=== PATIENT | male | born 1975 | race Caucasian/White ===

== ENCOUNTER 2016-09-20 18:42 | Emergency (ER) | payer OTHER ==
[~2016-09-20] VITALS: Ht 177.8 cm; Wt 76.0 kg
[~2016-09-20 18:42] MED LIST: CLON1TAB3 PO; MIRT15TA2 PO
[2016-09-20 18:52] VITALS: TEMP 37; Ht 177.8 cm; Wt 76.0 kg
[2016-09-20] MEDS ORDERED: XYLOCAINE 1%/SOD BICARB 20 ML VIAL INFIL ONE (20:00)
[2016-09-20 20:43] VITALS: BP 152/90; PULSE 75; O2SAT 96
--- NOTE | 2016-09-21 02:59 | EMERGENCY ROOM VISIT NOTE ---
History Report prepared by Roseline: Layla Arciniega Under the Supervision of: Dr. Alex Ac M.D. First contact with patient: 19:39 Chief Complaint: RECTAL BLEEDING Stated Complaint: HEMEROID BLEEDING Nursing Triage Summary: Pt reports hemorrhoids are bleeding since this morning History of Present Illness The patient is a 41 year old male who presents to the Emergency Room with complaints of worsening rectal bleeding with onset four days ago. The patient notes that he has hemorrhoids. He rates his discomfort as a 3/10. The patient notes that the hemorrhoids swelled over night. He has tried to clean the area. He has used an over the counter cream and has tried eating dates. Today, the patient's hemorrhoids started bleeding "uncontrollably." He relates that the bleeding was not with a bowel movement. The bleeding started as the patient was walking. He then felt nauseous. The patient notes that the area feels extremely sore. In the past, the patient has had a similar episode, but he notes that this had resolved much earlier. Pt denies LOC, headache, fevers, chills, diaphoresis, visual changes, neck pain, chest pain, breathing difficulties, vomiting, abdominal pain, back pain, melena, hematochezia, urinary symptoms, numbness, weakness, lymphadenopathy, rash, or other complaints. Source of History: patient Onset: 4 days ago Position: other (rectum ) Quality: other (rectal bleeding) Timing: worsening Associated Symptoms: + nausea Note: The patient notes that the area is very sore. Review of Systems See HPI for pertinent positives and negatives. A total of ten systems were reviewed and were otherwise negative. Past Medical & Surgical Medical Problems: (1) Kidney stones (2) Seizure disorder Family History Hemorrhoids Social History Smoking Status: Current Every Day Smoker Alcohol Use: occasionally Drug Use: none Occupation Status: employed Current/Historical Medications Scheduled Clonazepam (Klonopin), 1 MG PO HS Mirtazapine Soltab (Remeron Soltab), 15 MG PO HS Allergies Coded Allergies: No Known Allergies (Verified , 09/20/16) Physical Exam Vital Signs Date Time Temp Pulse Resp B/P Pulse Ox O2 Delivery O2 Flow Rate FiO2 09/20/16 20:43 75 16 152/90 96 Room Air 09/20/16 18:52 37.0 74 18 128/81 96 Room Air Physical Exam GENERAL: Awake, alert, well-appearing, in no distress HENT: Normocephalic, atraumatic. Oropharynx unremarkable. EYES: Normal conjunctiva. Sclera non-icteric. NECK: Supple. No nuchal rigidity. FROM. No JVD. RESPIRATORY: Clear to auscultation. CARDIAC: Regular rate, normal rhythm. Extremities warm and well perfused. Pulses equal. ABDOMEN: Soft, non-distended. No tenderness to palpation. No rebound or guarding. No masses. RECTAL: Very large left sided thrombosed hemorrhoid with some minimal venous bleeding present, tender without signs of infection. MUSCULOSKELETAL: Chest examination reveals no tenderness. The back is symmetrical on inspection without obvious abnormality. There is no CVA tenderness to palpation. No joint edema. LOWER EXTREMITIES: Calves are equal size bilaterally and non-tender. No edema. No discoloration. NEURO: Normal sensorium. No sensory or motor deficits noted. SKIN: No rash or jaundice noted. Medical Decision & Procedures Procedure Incision & Drainage Indication: Thrombosed external hemorrhoid Location: rectum Verbal consent was obtained after the risks and benefits were explained, including but not limited to bleeding, scarring, infection, pain, and bone/joint /nerve damage. At this time, the risks of the procedure are less than the risks of NOT performing the procedure. A time out was taken and the correct patient and site identified. The skin was prepped with betadine and a sterile field set. The wound was anesthetized with 3 ml of 1% lidocaine without epinephrine. The hemorrhoid cavity was entered with a number 11 blade and copious clot and blood was expressed. Copious irrigation was performed using normal saline. The wound was explored for foreign bodies and none found. Debridement was not performed. Detailed wound care instructions and signs and symptoms of infection reviewed with the patient. No complications and the patient tolerated the procedure well. ED Course 1942: The patient was evaluated in room D1. A complete history and physical exam was performed. 2033: I reevaluated the patient. Discussed results and discharge instructions: He verbalized understanding and agreement. The patient is ready for discharge. Medical Decision The patient presented to the emergent department complaining of rectal pain and bleeding. Differential includes thrombosed hemorrhoid, fissure, perianal abscess, perirectal abscess, as well as others. Physical examination revealed a clear-cut thrombosed external hemorrhoid. I discussed incision and drainage with the patient. He was in agreement. The patient had an incision and drainage performed with removal of a significant amount of clotted blood. He felt better with this. Bleeding was controlled. Home care was discussed in detail. He will follow-up in the office. If he worsens in any way he will be back to emergency department for reevaluation. Impression Primary Impression: External thrombosed hemorrhoids Scribe Attestation The scribe's documentation has been prepared under my direction and personally reviewed by me in its entirety. I confirm that the note above accurately reflects all work, treatment, procedures, and medical decision making performed by me. Departure Information Dispostion Home / Self-Care Referrals Yossi Jo M.D. (PCP) Forms HOME CARE DOCUMENTATION FORM, IMPORTANT VISIT INFORMATION, WORK / SCHOOL INSTRUCTIONS Patient Instructions My [facility] Additional Instructions Diagnosis: 1. Thrombosed external hemorrhoid Sitz bath or warm shower 2-3 times a day and after every bowel movement until healed. Use the Gauze as directed. Ibuprofen(Motrin, Advil) may be used for fever or pain. Use 600mg every six hours as needed. Take with food. Avoid using more than 2400mg in a 24 hour period. Do not use 2400mg per day for more than three consecutive days without physician direction. Prolonged inappropriate use can lead to stomach upset or ulcers. (AND/OR) Acetaminophen(Tylenol) may be used for fever or pain. Use 1000mg every six hours as needed. Avoid using more than 4000mg in a 24 hour period. Rest and drink plenty of fluids as tolerated. Slow sips of water or sports drinks are recommended instead of large amounts all at once. Continue current medications. Return to the ER immediately for worsening or persistent rectal bleeding, abdominal pain, vomiting, fevers, worsening of your condition, or as needed. Follow up with your primary physician in 2-3 days for a recheck of your current condition.
== END 2016-09-20 20:44 | disposition home or self-care (01) ==
LOC: C.EDB 18:43 → C.EDD 20:44
DX: K64.5 Perianal venous thrombosis (principal); G40.909 Epilepsy, unspecified, not intractable, without status epilepticus; F17.200 Nicotine dependence, unspecified, uncomplicated; Z87.442 Personal history of urinary calculi; Z79.899 Other long term (current) drug therapy

== ENCOUNTER 2017-05-24 01:31 | Emergency (ER) | payer OTHER ==
[~2017-05-24] VITALS: Ht 180.3 cm; Wt 80.0 kg
[2017-05-24 01:41] VITALS: TEMP 36.9; Ht 180.3 cm; Wt 80.0 kg
[2017-05-24] MEDS ORDERED: MoRPHine SULFATE 10 MG/ML CARP/VIAL IV STA (01:46)
[2017-05-24 01:47] VITALS: O2SAT 87
[2017-05-24 02:05] LABS: HEMATOCRIT 46.3 % (42-52); MEAN CELL VOLUME 96.3 fL (80-100); MEAN CORPUSCULAR HEMOGLOBIN 32.8 pg (25-34); MEAN CORPUSCULAR HGB CONC 34.1 g/dl (32-36); MEAN PLATELET VOLUME 8.9 fL (7.4-10.4); PLATELET COUNT 173 K/uL (130-400); RED BLOOD COUNT 4.81 M/uL (4.7-6.1); WHITE BLOOD COUNT 4.92 K/uL (4.8-10.8)
[2017-05-24 02:20] LABS: BUN/CREATININE RATIO 8.1 (10-20); CALCIUM 8.5 mg/dl (8.5-10.1); CREATININE 0.77 mg/dl (0.60-1.40); POTASSIUM 3.3 mmol/L (3.5-5.1)
[2017-05-24 02:31] LABS: COMPLETE YES; EOSINOPHIL % 1.8 %; LYMPH ABS # 1.29 K/uL (1.2-3.4); LYMPHOCYTE % 26.3 %; NEUTROPHILS % 40.3 %; VARIANT LYM ABS # 1.29 K/uL; VARIANT LYMPHOCYTE % 26.3 %
[2017-05-24] MEDS ORDERED: MoRPHine SULFATE 4 MG/ML 1 ML CARP\\VIAL IV STA (02:31)
[2017-05-24 03:31] VITALS: BP 130/95; PULSE 72; O2SAT 98
[2017-05-24] MEDS ORDERED: OXYC-106 PO (03:36)
--- NOTE | 2017-05-24 03:38 | EMERGENCY ROOM VISIT NOTE ---
History Report prepared by Roseline: Altagracia Bergeron Under the Supervision of: Dr. Wilfred Kim D.O. First contact with patient: 01:41 Chief Complaint: FALL Stated Complaint: FELL OFF ROOF History of Present Illness The patient is a 42 year old male who presents to the Emergency Room with complaints of an episode of fall around 1 hour ago. The patient presents to the ED by EMS. He was climbing up to the roof of his trailer to look for a raccoon. He was about 10 feet up when he fell onto the ground. He heard a crack when he fell. He has pain in his left chest and back. His oxygen saturation was 87% on room air. He did not hit his head. He complained of some neck pain earlier, but currently denies having any neck pain. He denies any abdominal pain or spine pain. He denies any history of medical problems. He is not on any medications. He is not on any blood thinners. He is a smoker. Source of History: patient, nursing staff Onset: 1 hour ago Position: other (global) Quality: other (fall) Timing: other (episodic) Associated Symptoms: + chest pain, + back pain, No headache, No neck pain, No abdominal pain Review of Systems See HPI for pertinent positives & negatives. A total of 10 systems reviewed and were otherwise negative. Past Medical & Surgical Medical Problems: (1) Kidney stones (2) Seizure disorder Family History Hemorrhoids Social History Smoking Status: Current Every Day Smoker Alcohol Use: occasionally Drug Use: none Occupation Status: employed Current/Historical Medications Scheduled PRN Oxycodone/Acetaminophen 10MG/325MG (Percocet 10MG/325MG), 1 TAB PO Q4H PRN for Pain Allergies Coded Allergies: No Known Allergies (Verified , 05/24/17) Physical Exam Vital Signs Date Time Temp Pulse Resp B/P (MAP) Pulse Ox O2 Delivery O2 Flow Rate FiO2 05/24/17 03:31 72 18 130/95 98 05/24/17 03:16 68 11 97 05/24/17 03:01 67 15 130/81 97 05/24/17 02:46 66 16 96 05/24/17 02:31 61 20 140/90 99 05/24/17 02:24 05/24/17 02:23 149/93 05/24/17 02:23 70 20 149/93 99 05/24/17 02:01 70 18 145/99 97 05/24/17 01:51 72 05/24/17 01:47 150/86 05/24/17 01:47 87 Nasal Cannula 4.0 05/24/17 01:41 36.9 78 26 136/99 87 Room Air Physical Exam CONSTITUTIONAL/VITAL SIGNS: Reviewed / noted above. GENERAL: Non-toxic in appearance. INTEGUMENTARY: Warm, dry, and [place]. HEAD: Normocephalic. EYES: without scleral icterus or trauma. ENT/OROPHARYNX: clear and moist. LYMPHADENOPATHY/NECK: Is supple without lymphadenopathy or meningismus. RESPIRATORY: Lungs clear and equal. CARDIOVASCULAR: Regular rate and rhythm. GI/ABDOMEN: Soft and nontender. No organomegaly or pulsatile mass. No rebound or guarding. Normal bowel sounds. EXTREMITIES: Warm and well perfused. BACK: No CVA tenderness. NEUROLOGICAL: Intact without focal deficits. PSYCHIATRIC: normal affect. MUSCULOSKELETAL: Normally developed with good muscle tone. Tenderness to palpation over the left mid lateral chest area. Medical Decision & Procedures ER Provider Diagnostic Interpretation: X ray results and stated below per my interpretation and radiology review. Ribs w/ Chest X-ray: Minimally displaced left 5th and 6th rib fractures, no obvious pneumothorax. Laboratory Results 05/24/17 01:54 Red Blood Count 4.81, Mean Corpuscular Volume 96.3, Mean Corpuscular Hemoglobin 32.8, Mean Corpuscular Hemoglobin Concent 34.1, Mean Platelet Volume 8.9 05/24/17 01:54 Test 05/24/17 01:54 05/24/17 01:55 White Blood Count 4.92 K/uL (4.8-10.8) Red Blood Count 4.81 M/uL (4.7-6.1) Hemoglobin 15.8 g/dL (14.0-18.0) Hematocrit 46.3 % (42-52) Mean Corpuscular Volume 96.3 fL (80-100) Mean Corpuscular Hemoglobin 32.8 pg (25-34) Mean Corpuscular Hemoglobin Concent 34.1 g/dl (32-36) Platelet Count 173 K/uL (130-400) Mean Platelet Volume 8.9 fL (7.4-10.4) RDW Standard Deviation 45.5 fL (36.4-46.3) RDW Coefficient of Variation 12.9 % (11.5-14.5) Neutrophils % (Manual) 40.3 % Lymphocytes % (Manual) 26.3 % Variant Lymphocytes % (manual) 26.3 % Monocytes % (Manual) 5.3 % Eosinophils % (Manual) 1.8 % Neutrophils # (Manual) 1.98 K/uL (1.4-6.5) Total Absolute Neutrophils 1.98 K/uL (1.4-6.5) Lymphocytes # (Manual) 1.29 K/uL (1.2-3.4) Absolute Variant Lymphocytes 1.29 K/uL Total Absolute Lymphocytes 2.59 K/uL (1.2-3.4) Monocytes # (Manual) 0.26 K/uL (0.11-0.59) Eosinophils # (Manual) 0.09 K/uL (0-0.5) Anion Gap 9.0 mmol/L (3-11) Est Creatinine Clear Calc Drug Dose 131.7 ml/min Estimated GFR () 128.8 Estimated GFR (Non- 111.1 BUN/Creatinine Ratio 8.1 (10-20) Calcium Level 8.5 mg/dl (8.5-10.1) Ethyl Alcohol mg/dL 260.0 mg/dl (0-3) Laboratory results as stated above per my review. Medications Administered Medications (Trade) Dose Ordered Sig/Murali Route Start Time Stop Time Status Last Admin Dose Admin Morphine Sulfate (MoRPHine SULFATE INJ) 6 mg NOW STAT IV 05/24/17 01:46 05/24/17 01:49 DC 05/24/17 01:56 6 MG Morphine Sulfate (MoRPHine SULFATE INJ) 4 mg NOW STAT IV 05/24/17 02:31 05/24/17 02:32 DC 05/24/17 02:46 4 MG Oxycodone/ Acetaminophen (Percocet 5/ 325MG Home Pack) 1 homepack UD ONCE PO 05/24/17 03:45 05/24/17 03:46 DC 05/24/17 03:51 1 HOMEPACK ED Course 0141: Previous medical records were reviewed. The patient was evaluated in room B1. A complete history and physical examination was performed. 0146: Morphine Sulfate 6 mg IV. 0231: Morphine Sulfate 4 mg IV. 0330: On reevaluation, the patient is resting comfortably. I discussed the results and findings with the patient. He verbalized agreement of the treatment plan. He was discharged home. 0345: Percocet 1 homepack PO. Medical Decision Differential includes close head injury, intracranial bleed, facial trauma, cervical spine trauma, chest and thoracic trauma, abdominal and intra-abdominal trauma, spine neurologic trauma, extremity trauma. This is a 42-year-old male who presents to the ED with a chief complaint of left -sided rib pain after falling off a ladder when he was climbing up onto his roof to find a raccoon. The patient fell onto his left side. He denies striking his head or loss of consciousness. He denies any neck or back pain. Denies extremity pain. His initial oxygen saturations when he arrived was 88% on room air. He is a smoker and was in a moderate amount of pain. The patient was treated with IV morphine. X-rays revealed fractures of the left fifth and sixth ribs. The patient's blood work was unremarkable. He was drinking and admits to alcohol consumption. His alcohol level was 260. The patient was told the results of the tests. He was treated with IV morphine. His symptoms did improve and his oxygen saturations improved with pain management. He was discharged on Percocet. Follow-up recommended. He was told to take deep breaths periodically to avoid pneumonia. Medication Reconcilliation Current Medication List: was personally reviewed by me Blood Pressure Screening Patient's blood pressure: Elevated blood pressure Blood pressure disposition: Elevated BP felt to be situational Impression Primary Impression: Multiple rib fractures Scribe Attestation The scribe's documentation has been prepared under my direction and personally reviewed by me in its entirety. I confirm that the note above accurately reflects all work, treatment, procedures, and medical decision making performed by me. Departure Information Dispostion Home / Self-Care Prescriptions Oxycodone/Acetaminophen 10MG/325MG (PERCOCET 10MG/325MG) Tab 1 TAB PO Q4H Y for Pain, #30 TAB Prov: Wilfred Kim D.O. 05/24/17 Referrals No Doctor, Assigned (PCP) Patient Instructions ED Fx Rib, [facility] Additional Instructions Percocet as prescribed. No driving within 6 hours of use. Do not take additional Tylenol while taking Percocet. Avoid heavy lifting. Do not lift anything heavier than 10 pounds for the next 3 weeks. Take periodic deep breaths to avoid getting pneumonia. Follow-up with your doctor for further care and evaluation in 3-6 days. Return to the emergency department for worsening or new symptoms or any concerns. You have been examined and treated today on an emergency basis only. This is not a substitute for, or an effort to provide, complete comprehensive medical care. It is impossible to recognize and treat all injuries or illnesses in a single emergency department visit. It is therefore important that you follow up closely with your doctor. Call as soon as possible for an appointment. Work Instructions Return To Work: 3 days Lifting Limitations: no more than 10 pounds
[2017-05-24] MEDS ORDERED: PERCOCET HOME PACK PO ONE (03:45)
--- NOTE | 2017-05-24 07:01 | DIAGNOSTIC IMAGING REPORT ---
L RIBS UNILATERAL WITH PA CHEST CLINICAL HISTORY: Trauma, fall off roof. Trauma. Pain. COMPARISON STUDY: None FINDINGS: Fractures left fourth fifth and sixth ribs. No evidence pneumothorax. Remaining ribs are unremarkable. Lungs are clear. IMPRESSION: Nondisplaced fractures left fourth fifth and sixth ribs. No evidence pneumothorax. The above report was generated using voice recognition software. It may contain grammatical, syntax or spelling errors. Electronically signed by: Yossi Hernández M.D. 05/24/2017 7:00 AM Dictated Date/Time: 05/24/2017 6:57 AM
== END 2017-05-24 04:00 | disposition home or self-care (01) ==
LOC: C.EDB 01:32
DX: S22.42XA Multiple fractures of ribs, left side, initial encounter for closed fracture (principal); W11.XXXA Fall on and from ladder, initial encounter; Y92.028 Other place in mobile home as the place of occurrence of the external cause; Y93.89 Activity, other specified; F17.210 Nicotine dependence, cigarettes, uncomplicated; Z84.1 Family history of disorders of kidney and ureter; Z82.0 Family history of epilepsy and other diseases of the nervous system; F10.929 Alcohol use, unspecified with intoxication, unspecified; Y90.8 Blood alcohol level of 240 mg/100 ml or more

== ENCOUNTER 2017-12-09 15:04 | Emergency (ER) | payer OTHER ==
[~2017-12-09] VITALS: Ht 177.8 cm; Wt 87.4 kg
[2017-12-09 15:13] VITALS: TEMP 36.6; Ht 177.8 cm; Wt 87.4 kg
[2017-12-09] MEDS ORDERED: ONDANSETRON INJ 2 MG/ML 2 ML VIAL IV STA (15:38)
[2017-12-09] MEDS ORDERED: SODIUM CHLORIDE 0.9% 1000ML 1,000 ML IV STA (15:38)
[2017-12-09] MEDS ORDERED: MoRPHine SULFATE 4 MG/ML 1 ML CARP\\VIAL IV STA (15:38)
[2017-12-09 15:58] LABS: BASO % 0.2 %; BASO ABS # 0.01 K/uL (0-0.2); EOS % 1.6 %; EOS ABS # 0.08 K/uL (0-0.5); HEMATOCRIT 42.3 % (42-52); HEMOGLOBIN 14.4 g/dL (14.0-18.0); LYMPH % 35.5 %; LYMPH ABS # 1.83 K/uL (1.2-3.4); MEAN CELL VOLUME 90.8 fL (80-100); MEAN CORPUSCULAR HEMOGLOBIN 30.9 pg (25-34); MEAN PLATELET VOLUME 9.2 fL (7.4-10.4); MONO % 8.3 %; MONO ABS # 0.43 K/uL (0.11-0.59); NEUT % 54.4 %; NEUT ABS # 2.81 K/uL (1.4-6.5); PLATELET COUNT 168 K/uL (130-400); RED CELL DISTRIBUTION WIDTH CV 12.5 % (11.5-14.5); RED CELL DISTRIBUTION WIDTH SD 41.7 fL (36.4-46.3); WHITE BLOOD COUNT 5.16 K/uL (4.8-10.8)
[2017-12-09 16:09] LABS: PTT PATIENT 28.2 SECONDS (21.0-31.0)
[2017-12-09 16:19] LABS: ALBUMIN 3.9 gm/dl (3.4-5.0); ALT/SGPT 17 U/L (12-78); AST/SGOT 13 U/L (15-37); BLOOD UREA NITROGEN 12 mg/dl (7-18); CALCIUM 8.7 mg/dl (8.5-10.1); CARBON DIOXIDE 27 mmol/L (21-32); CREATININE 1.07 mg/dl (0.60-1.40); GLUCOSE 83 mg/dl (70-99); POTASSIUM 3.8 mmol/L (3.5-5.1); SODIUM 136 mmol/L (136-145)
[2017-12-09 16:24] LABS: ALKALINE PHOSPHATASE 59 U/L (45-117); LIPASE 1929 U/L (73-393); TOTAL PROTEIN 7.3 gm/dl (6.4-8.2)
[2017-12-09] MEDS ORDERED: OPTIRAY 320 IV PRN (16:30)
--- NOTE | 2017-12-09 16:57 | DIAGNOSTIC IMAGING REPORT ---
CT OF THE CHEST WITH IV CONTRAST CLINICAL HISTORY: Left sided chest and abdominal pain for 3 months. COMPARISON STUDY: Chest radiograph and left rib series May 24, 2017. TECHNIQUE: Following IV administration of 115 mL of Optiray-320, helical axial images of the chest were obtained. Sagittal and coronal reconstructions were viewed as well as maximal intensity projections on an independent 3-D workstation. A dose lowering technique was utilized adhering to the principles of ALARA. FINDINGS: There is no pneumothorax or pleural effusion. There is no evidence of traumatic injury to the thoracic aorta. There is no thoracic lymphadenopathy. The size the heart is normal. There is no pericardial effusion. The central airways are patent. There is no consolidation to suggest pneumonia. Note is made of fractures of the lateral left fifth through ninth ribs and the posterior left sixth through ninth ribs. The majority of these fractures are completely healed. A few fractures are incompletely healed. No acute fracture within the ribs is identified. Note is made of slight loss of height of the superior endplates of T3, T4, T5, T7 and T9. These findings appear chronic. No acute thoracic spine fracture is present. Abdomen and pelvis will be reported separately. IMPRESSION: 1. No acute traumatic findings within the chest. 2. Multiple left-sided rib fractures, including fractures of the lateral left fifth through ninth ribs and the posterior left sixth through ninth ribs. Near complete interval healing of the fractures. 3. Mild compression deformities involving the superior endplates of T3, T4, T5, T7 and T9 which appear chronic. Electronically signed by: Hugo Robles M.D. 12/09/2017 4:55 PM Dictated Date/Time: 12/09/2017 4:43 PM
--- NOTE | 2017-12-09 17:02 | DIAGNOSTIC IMAGING REPORT ---
CT OF THE ABDOMEN AND PELVIS WITH CONTRAST CLINICAL HISTORY: Left-sided chest and abdominal pain for 3 months. COMPARISON STUDY: CT of the abdomen and pelvis July 20, 2015. TECHNIQUE: Following IV administration of 115 mL of Optiray-320, axial images of the abdomen and pelvis were obtained from the lung bases to the proximal femurs. Images were reviewed in the axial, sagittal, and coronal planes. IV contrast was administered without complication. A dose lowering technique was utilized adhering to the principles of ALARA. CT DOSE: 611.70 mGy.cm FINDINGS: The chest will be reported separately. Visualized portions of the lower chest demonstrate several left-sided rib fractures which have nearly completely healed. A 9 mm medial segment hepatic cyst is noted. The spleen, adrenal glands, right kidney and pancreas are unremarkable. Left renal calculi measure up to 5 mm. There is no hydronephrosis and no ureteral calculi are identified. No pneumatosis, free air or portal venous gas is present. There is no lymphadenopathy. There is no evidence for a bowel obstruction. No suspicious osseous lesions are present. Caliber and wall thickness of small and large bowel are normal. IMPRESSION: 1. No acute process within the abdomen or pelvis. 2. Left-sided nephrolithiasis. No ureteral calculi or hydronephrosis. 3. Multiple healing left-sided rib fractures. Electronically signed by: Hugo Robles M.D. 12/09/2017 5:00 PM Dictated Date/Time: 12/09/2017 4:56 PM
[2017-12-09 17:38] VITALS: BP 167/100; PULSE 67; O2SAT 98
--- NOTE | 2017-12-09 17:47 | EMERGENCY ROOM VISIT NOTE ---
History First contact with patient: 15:15 Chief Complaint: ABDOMINAL PAIN Stated Complaint: LEFT SIDED ABDOMINAL PAIN History of Present Illness The patient is a 42 year old male who presents to the Emergency Room with complaints of multiple symptoms, primarily left-sided abdominal pain that radiates into the left chest, left scapular region and left groin/hip region. The patient reports that he fell off of a roof 6 months ago, and was seen here in our emergency department. He was diagnosed with 3 rib fractures. The patient reports that he started to develop discomfort shortly thereafter, and did not seek any further reevaluation. The patient reports that the pain initially was intermittent for the first few months, then became more constant. He now reports that over the past 2 weeks, the pain is progressively worsening. The patient reports that he gets a sharp discomfort in the left abdomen region, and shortly thereafter, starts to develop "itchy skin" of the left lower abdomen region. The patient has not had any difficulty with urination, nor has he noticed any urine darkening or hematuria. The patient does report loose liquidy stools. The patient reports that he was a previous heavy drinker, but since meeting a new girl shortly after his injury, he has abstained from alcohol for the past 3-4 months. He has not noticed any blood or mucus in his stools. He denies melena, coffee-ground emesis, chest pain or shortness of breath. He has had some nausea/dry heaving without coffee-ground emesis. The patient currently rates his discomfort a 4 out of 10. Review of Systems HEENT: Denies dizziness, visual problems, hearing loss, tinnitus. Denies difficulty swallowing or oral lesions. PULMONARY: Denies cough, shortness of breath, sputum production or hemoptysis. CARDIOVASCULAR: Denies chest pain, palpitations, dyspnea on exertion, orthopnea or peripheral edema. GASTROINTESTINAL: Reports intermittent diarrhea and nausea without vomiting, otherwise see HPI. GENITOURINARY: Denies dysuria, frequency, urgency or nocturia. NEUROLOGIC: Denies history of epilepsy, CVA, TIA or chronic headaches. MUSCULOSKELETAL: Denies history of joint tenderness/swelling. SKIN: Denies rashes or lesions. PSYCHIATRIC: Denies history of depression or mental illness. ENDOCRINE: Denies history of diabetes or thyroid disorders. Past Medical/Surgical History Medical Problems: (1) Kidney stones (2) Seizure disorder Family History Hemorrhoids Social History Smoking Status: Current Every Day Smoker Alcohol Use: occasionally Drug Use: none Marital Status: single Housing Status: lives with significant other Occupation Status: employed Current/Historical Medications No Active Prescriptions or Reported Meds Physical Exam Vital Signs Date Time Temp Pulse Resp B/P (MAP) Pulse Ox O2 Delivery O2 Flow Rate FiO2 12/09/17 15:13 36.6 79 18 132/91 98 Room Air Physical Exam CONSTITUTIONAL: Healthy and well nourished. Alert and oriented X 3 with positive affect. Patient does not appear in any acute distress on exam. HEENT: Normocephalic, atraumatic. Pupils equal, round and reactive. No scleral icterus or conjunctival injection/pallor. NECK: Full active range of motion without discomfort. No JVD or carotid bruits. RESPIRATORY: Clear to auscultation bilaterally with no wheezing, crackles, rhonchi or stridor. The breathing does not worsen discomfort. CARDIOVASCULAR: Regular rate and rhythm with no murmurs, rubs or gallops. GASTROINTESTINAL: Bowel sounds present in all quadrants. Patient has mild left upper quadrant tenderness to palpation. Negative CVA tenderness. Negative McBurney's point tenderness. No abdominal rigidity, guarding or rebound. MUSCULOSKELETAL: Full range of motion of all joints without discomfort. INTEGUMENTARY: No rash or other significant dermatologic conditions noted. HEMATOLOGIC: No ecchymosis or petechiae. NEUROLOGIC: Cranial nerves II-XII grossly intact. No focal neurologic deficits noted. Medical Decision & Procedures ER Provider Diagnostic Interpretation: My interpretation of an ECG shows a sinus bradycardia of [address] elevation or other conduction abnormalities. Review of prior ECGs also shows a prior history of bradycardia. CT of the chest with IV contrast does not show any acute findings. It is noted to the patient has multiple left-sided rib fractures, more so than what was seen on traditional x-rays on his last ED visit when x-rays were performed. Radiologist report is as follows: CT OF THE CHEST WITH IV CONTRAST CLINICAL HISTORY: Left sided chest and abdominal pain for 3 months. COMPARISON STUDY: Chest radiograph and left rib series May 24, 2017. TECHNIQUE: Following IV administration of 115 mL of Optiray-320, helical axial images of the chest were obtained. Sagittal and coronal reconstructions were viewed as well as maximal intensity projections on an independent 3-D workstation. A dose lowering technique was utilized adhering to the principles of ALARA. FINDINGS: There is no pneumothorax or pleural effusion. There is no evidence of traumatic injury to the thoracic aorta. There is no thoracic lymphadenopathy. The size the heart is normal. There is no pericardial effusion. The central airways are patent. There is no consolidation to suggest pneumonia. Note is made of fractures of the lateral left fifth through ninth ribs and the posterior left sixth through ninth ribs. The majority of these fractures are completely healed. A few fractures are incompletely healed. No acute fracture within the ribs is identified. Note is made of slight loss of height of the superior endplates of T3, T4, T5, T7 and T9. These findings appear chronic. No acute thoracic spine fracture is present. Abdomen and pelvis will be reported separately. IMPRESSION: 1. No acute traumatic findings within the chest. 2. Multiple left-sided rib fractures, including fractures of the lateral left fifth through ninth ribs and the posterior left sixth through ninth ribs. Near complete interval healing of the fractures. 3. Mild compression deformities involving the superior endplates of T3, T4, T5, T7 and T9 which appear chronic. CT of the abdomen and pelvis with IV contrast does not show any acute findings. Renal calculi are noted, with the patient having a history of prior kidney stones. Radiologist report is as follows: CT OF THE ABDOMEN AND PELVIS WITH CONTRAST CLINICAL HISTORY: Left-sided chest and abdominal pain for 3 months. COMPARISON STUDY: CT of the abdomen and pelvis July 20, 2015. TECHNIQUE: Following IV administration of 115 mL of Optiray-320, axial images of the abdomen and pelvis were obtained from the lung bases to the proximal femurs. Images were reviewed in the axial, sagittal, and coronal planes. IV contrast was administered without complication. A dose lowering technique was utilized adhering to the principles of ALARA. CT DOSE: 611.70 mGy.cm FINDINGS: The chest will be reported separately. Visualized portions of the lower chest demonstrate several left-sided rib fractures which have nearly completely healed. A 9 mm medial segment hepatic cyst is noted. The spleen, adrenal glands, right kidney and pancreas are unremarkable. Left renal calculi measure up to 5 mm. There is no hydronephrosis and no ureteral calculi are identified. No pneumatosis, free air or portal venous gas is present. There is no lymphadenopathy. There is no evidence for a bowel obstruction. No suspicious osseous lesions are present. Caliber and wall thickness of small and large bowel are normal. IMPRESSION: 1. No acute process within the abdomen or pelvis. 2. Left-sided nephrolithiasis. No ureteral calculi or hydronephrosis. 3. Multiple healing left-sided rib fractures. Laboratory Results 12/09/17 15:36 Red Blood Count 4.66, Mean Corpuscular Volume 90.8, Mean Corpuscular Hemoglobin 30.9, Mean Corpuscular Hemoglobin Concent 34.0, Mean Platelet Volume 9.2, Neutrophils (%) (Auto) 54.4, Lymphocytes (%) (Auto) 35.5, Monocytes (%) (Auto) 8.3, Eosinophils (%) (Auto) 1.6, Basophils (%) (Auto) 0.2, Neutrophils # (Auto) 2.81, Lymphocytes # (Auto) 1.83, Monocytes # (Auto) 0.43, Eosinophils # (Auto) 0.08, Basophils # (Auto) 0.01 12/09/17 15:36 Test 12/09/17 15:36 White Blood Count 5.16 K/uL (4.8-10.8) Red Blood Count 4.66 M/uL (4.7-6.1) Hemoglobin 14.4 g/dL (14.0-18.0) Hematocrit 42.3 % (42-52) Mean Corpuscular Volume 90.8 fL (80-100) Mean Corpuscular Hemoglobin 30.9 pg (25-34) Mean Corpuscular Hemoglobin Concent 34.0 g/dl (32-36) Platelet Count 168 K/uL (130-400) Mean Platelet Volume 9.2 fL (7.4-10.4) Neutrophils (%) (Auto) 54.4 % Lymphocytes (%) (Auto) 35.5 % Monocytes (%) (Auto) 8.3 % Eosinophils (%) (Auto) 1.6 % Basophils (%) (Auto) 0.2 % Neutrophils # (Auto) 2.81 K/uL (1.4-6.5) Lymphocytes # (Auto) 1.83 K/uL (1.2-3.4) Monocytes # (Auto) 0.43 K/uL (0.11-0.59) Eosinophils # (Auto) 0.08 K/uL (0-0.5) Basophils # (Auto) 0.01 K/uL (0-0.2) RDW Standard Deviation 41.7 fL (36.4-46.3) RDW Coefficient of Variation 12.5 % (11.5-14.5) Immature Granulocyte % (Auto) 0.0 % Immature Granulocyte # (Auto) 0.00 K/uL (0.00-0.02) Prothrombin Time 10.4 SECONDS (9.0-12.0) Prothromb Time International Ratio 1.0 (0.9-1.1) Activated Partial Thromboplast Time 28.2 SECONDS (21.0-31.0) Partial Thromboplastin Ratio 1.1 Urine Color YELLOW Urine Appearance CLEAR (CLEAR) Urine pH 5.5 (4.5-7.5) Urine Specific [place] 1.011 (1.000-1.030) Urine Protein NEG (NEG) Urine Glucose (UA) NEG (NEG) Urine Ketones NEG (NEG) Urine Occult Blood NEG (NEG) Urine Nitrite NEG (NEG) Urine Bilirubin NEG (NEG) Urine Urobilinogen NEG (NEG) Urine Leukocyte Esterase NEG (NEG) Anion Gap 3.0 mmol/L (3-11) Est Creatinine Clear Calc Drug Dose 91.9 ml/min Estimated GFR () 98.0 Estimated GFR (Non- 84.6 BUN/Creatinine Ratio 11.4 (10-20) Calcium Level 8.7 mg/dl (8.5-10.1) Total Bilirubin 0.4 mg/dl (0.2-1) Direct Bilirubin 0.1 mg/dl (0-0.2) Aspartate Amino Transf (AST/SGOT) 13 U/L (15-37) Alanine Aminotransferase (ALT/SGPT) 17 U/L (12-78) Alkaline Phosphatase 59 U/L (45-117) Total Creatine Kinase 71 U/L (39-308) Troponin I < 0.015 ng/ml (0-0.045) Total Protein 7.3 gm/dl (6.4-8.2) Albumin 3.9 gm/dl (3.4-5.0) Lipase 1929 U/L (73-393) The above labs were reviewed and grossly normal except for an elevated lipase of 1929. Medications Administered Medications (Trade) Dose Ordered Sig/Murali Route Start Time Stop Time Status Last Admin Dose Admin Sodium Chloride 1,000 ml @ 999 mls/hr Q1H1M STAT IV 12/09/17 15:38 12/09/17 16:38 DC 12/09/17 16:17 999 MLS/HR Ondansetron HCl (Zofran Inj) 4 mg NOW STAT IV 12/09/17 15:38 12/09/17 15:41 DC 12/09/17 16:17 4 MG Morphine Sulfate (MoRPHine SULFATE INJ) 4 mg NOW STAT IV 12/09/17 15:38 12/09/17 15:41 DC 12/09/17 16:17 4 MG ED Course Patient history and physical exam were performed. Nurse's notes were reviewed. Vital signs were reviewed and and were normal. IV access was established, and labs were drawn. The patient was administered IV saline, morphine and Zofran for pain and nausea. Review of labs shows an elevated lipase of over 1900. LFTs, CBC and partial renal profile was otherwise normal. Urinalysis does not show any evidence for hematuria or signs of infection. Troponin was also normal. An ECG showed a sinus bradycardia, but the patient has had sinus bradycardia in the past. CT of the chest with IV contrast shows multiple healing rib fractures. CT of the abdomen and pelvis did not show any other acute findings. Review of labs shows an elevated lipase, consistent with pancreatitis. Remaining labs were otherwise normal. Findings were discussed with the patient. The case was also discussed with Dr. White, ED attending physician, who agrees with outpatient follow-up. The patient was encouraged to call his PCP for GI referral. He was encouraged to refrain from alcohol use. Ibuprofen and Tylenol as needed for pain. The patient did not feel that he would need any antinausea medicines, was happy with plan of care, and denied any significant discomfort at the time of discharge. Medical Decision I suspect that the majority of the patient's pain is likely from his pancreatitis. However, the patient did have a significant trauma sustaining multiple left-sided rib fractures. Imaging studies are not suggestive of intrathoracic or intra-abdominal trauma. I do not suspect infectious etiology. The patient is afebrile and has no leukocytosis. I also do not suspect acute cardiopulmonary etiologies, including myocardial infarction, pulmonary embolus, pneumothorax or pericarditis. Laboratory studies are not suggestive of hepatitis or cholecystitis. [place] Drug Monitoring Program Search Results: patient reviewed within database, no issues identified Medication Reconcilliation Current Medication List: was personally reviewed by me Blood Pressure Screening Patient's blood pressure: Normal blood pressure Impression Primary Impression: Pancreatitis Additional Impression: Multiple fractures of ribs of left side with routine healing Departure Information Prescriptions No Active Prescriptions or Reported Meds Referrals Yossi Jo M.D. (PCP) Patient Instructions My [facility] Problem Qualifiers Primary Impression: Pancreatitis Chronicity: acute Pancreatitis type: alcohol induced Acute pancreatitis complication: unspecified Qualified Codes: K85.20 - Alcohol induced acute pancreatitis without necrosis or infection
== END 2017-12-09 17:39 | disposition home or self-care (01) ==
LOC: C.EDB 15:04 → C.EDC 17:39
DX: K85.20 Alcohol induced acute pancreatitis without necrosis or infection (principal); S22.42XA Multiple fractures of ribs, left side, initial encounter for closed fracture; X58.XXXA Exposure to other specified factors, initial encounter; R56.9 Unspecified convulsions; F17.200 Nicotine dependence, unspecified, uncomplicated

== ENCOUNTER 2018-01-05 10:50 | Emergency (ER) | payer OTHER ==
[~2018-01-05] VITALS: Ht 177.8 cm; Wt 86.3 kg
[2018-01-05 10:53] VITALS: TEMP 36.7; Ht 177.8 cm; Wt 86.3 kg
[2018-01-05] MEDS ORDERED: SODIUM CHLORIDE 0.9% 1000ML 1,000 ML IV STA (11:27)
[2018-01-05] MEDS ORDERED: ONDANSETRON INJ 2 MG/ML 2 ML VIAL IV STA (11:27)
[2018-01-05] MEDS ORDERED: KETOROLAC TROMETHAMINE 30 MG/ML VIAL IV STA (11:27)
[2018-01-05 11:43] LABS: BASO % 0.4 %; BASO ABS # 0.02 K/uL (0-0.2); EOS % 1.5 %; EOS ABS # 0.08 K/uL (0-0.5); HEMATOCRIT 42.7 % (42-52); HEMOGLOBIN 14.8 g/dL (14.0-18.0); IG# 0.01 K/uL (0.00-0.02); LYMPH % 31.7 %; LYMPH ABS # 1.73 K/uL (1.2-3.4); MEAN CELL VOLUME 89.3 fL (80-100); MEAN CORPUSCULAR HGB CONC 34.7 g/dl (32-36); MEAN PLATELET VOLUME 9.1 fL (7.4-10.4); MONO % 10.6 %; MONO ABS # 0.58 K/uL (0.11-0.59); NEUT % 55.6 %; NEUT ABS # 3.04 K/uL (1.4-6.5); PLATELET COUNT 169 K/uL (130-400); RED CELL DISTRIBUTION WIDTH CV 12.5 % (11.5-14.5); RED CELL DISTRIBUTION WIDTH SD 40.6 fL (36.4-46.3); WHITE BLOOD COUNT 5.46 K/uL (4.8-10.8)
--- NOTE | 2018-01-05 11:59 | EMERGENCY ROOM VISIT NOTE ---
History First contact with patient: 11:06 Chief Complaint: ABDOMINAL PAIN Stated Complaint: ABD PAIN, NAUSEA, DIARRHEA, KIDNEY PAIN Nursing Triage Summary: patient states he started with abdominal pain last night. hx of chronic stomach issues. hx of kidney stone in the left side. History of Present Illness The patient is a 42 year old male who presents to the Emergency Room with complaints of left flank pain. The patient states last evening he was having difficulty getting to sleep. He states by midnight he was having chills and sweats which he associated with severe pain. He awoke at approximately 3:57 AM , and had a bowel movement almost as soon as he stood up. He states he sat on the toilet for approximately 1 hour. He was last here approximately 1 month ago for left side and left chest pain when he was diagnosed with possible pancreatitis. He states he has had a CT scan performed recently that showed a 5 mm stone within the left kidney. The patient has been following with his PCP , and states the suspicion is that the stone is causing the patient's symptoms today. The patient states he has not been drinking much, and has not eaten much. He did tolerate food this morning. He states this morning his urine was initially very dark, but denies any blood, burning, or pain with urination. He states the urine continues to remain slightly dark, however has improved in color. He does report some dizziness, headache, nausea, and body aches associated with his flank pain. He denies any fever, recent illness, vomiting, syncope, chest pain, dyspnea, or other associated symptoms. Review of Systems A complete 10 point review of systems was reviewed with the patient with pertinent positives and negatives as per history of present illness. All else were negative. Past Medical/Surgical History Medical Problems: (1) Adjustment Disorder With Depressed Mood (2) Alcohol Abuse-Unspec (3) Cannabis Abuse-Unspec (4) Depressive Disorder Nec (5) Kidney stones (6) Seizure disorder Surgical Problems: (1) Hernia of anterior abdominal wall (2) Unilat Inguinal Hernia Family History Hemorrhoids Social History Smoking Status: Current Some Day Smoker Alcohol Use: occasionally Drug Use: none Marital Status: single Housing Status: lives with significant other Occupation Status: employed Current/Historical Medications Scheduled Nicotine (Nicoderm Cq 21MG Patch), 1 PATCH TD DAILY Omeprazole (Prilosec), 20 MG PO DAILY Ondasetron Odt (Zofran Odt), 4 MG SL Q6H Scheduled PRN Albuterol Hfa (Ventolin Hfa), 2-4 PUFFS INH Q6H PRN for SOB/Wheezing Physical Exam Vital Signs Date Time Temp Pulse Resp B/P (MAP) Pulse Ox O2 Delivery O2 Flow Rate FiO2 01/05/18 14:02 57 18 110/68 97 Room Air 01/05/18 12:50 47 18 99/57 97 Room Air 01/05/18 10:53 36.7 89 16 106/74 97 Room Air Physical Exam VITALS: Vitals are noted on the nurse's note and reviewed by myself. Vital signs stable. GENERAL: This is a 42-year-old white male, in no acute distress, nondiaphoretic , well-developed well-nourished. SKIN: The skin was without rashes, erythema, edema, or bruising. There is no tenting of the skin. Capillary reflex less than 2 seconds. HEAD: Normocephalic atraumatic. EARS: External auditory canals clear, tympanic membranes pearly calvin without erythema or effusion bilaterally. EYES: Pupils equal round and reactive to light and accommodation. Conjunctivae without injection, sclerae without icterus. Extraocular movements intact. NOSE: Patent, turbinates without inflammation or discharge. No sinus tenderness. MOUTH: Mucous membranes moist. Tonsils are not enlarged. Pharynx without erythema or exudate. Uvula midline. Airway patent. Tongue does not deviate. NECK: Supple without nuchal rigidity. No lymphadenopathy. No thyromegaly. Cervical spine is nontender. No JVD. HEART: Regular rate and rhythm without murmurs gallops or rubs. LUNGS: Clear to auscultation bilaterally without wheezes, rales or rhonchi. No dullness to percussion. No retractions or accessory muscle use. ABDOMEN: Positive bowel sounds x 4. Normal tympanic percussion. Left mid abdominal pain and left CVA tenderness. The abdomen was otherwise soft, nontender, without masses or organomegaly. No right CVA tenderness noted. Pack sign negative. No guarding or rebound tenderness. MUSCULOSKELETAL: No muscle atrophy, erythema, or edema noted. Full range of motion without joint tenderness in all extremities. No tenderness to palpation. No thoracic or lumbar spine tenderness on palpation. Normal gait. Strength 5/5 throughout. NEURO: Patient was alert and oriented to person place and time. Normal sensation to light and sharp touch. Deep tendon reflexes 2+ throughout. No focal neurological deficits. Medical Decision & Procedures ER Provider Diagnostic Interpretation: KUB HISTORY: left flank pain, known left renal calculus COMPARISON: Abdomen and pelvis CT 12/09/2017. FINDINGS: The bowel gas pattern is unremarkable. There are no dilated loops of small bowel to suggest an obstruction. No right renal calculi. Small stones within the lower pole the left kidney with the largest measuring 5 mm. No definite ureteral calculi. Calcifications in the deep pelvis are nonspecific but likely represent phleboliths. No pneumoperitoneum or pneumatosis. Old, healed left L2-L4 transverse process fractures. Old, healed left rib fractures. IMPRESSION: Stable left-sided nephrolithiasis. No ureteral calculi identified. Electronically signed by: Abhijit Cole M.D. 01/05/2018 12:34 PM Dictated Date/Time: 01/05/2018 12:32 PM (RENAL)RETROPERITON COMP HISTORY: Flank pain left flank pain COMPARISON: 12/02/2007 FINDINGS: Right kidney: Maximum dimension 9.9 cm. No evidence for hydronephrosis. Normal corticomedullary differentiation and cortical thickness. Left kidney: Maximum linear dimension 11.1 cm. No evidence for hydronephrosis. 7 mm lower pole nonobstructing calcification. Normal corticomedullary differentiation and cortical thickness. Bladder: No bladder wall thickening. The bilateral ureteral jets were identified. IMPRESSION: 1. 7 mm lower pole nonobstructing calcification left kidney. 2. Study otherwise is negative with no evidence for hydronephrosis. The above report was generated using voice recognition software. It may contain grammatical, syntax or spelling errors. Electronically signed by: Yossi Hernández M.D. 01/05/2018 1:25 PM Dictated Date/Time: 01/05/2018 1:24 PM Laboratory Results 01/05/18 11:32 Red Blood Count 4.78, Mean Corpuscular Volume 89.3, Mean Corpuscular Hemoglobin 31.0, Mean Corpuscular Hemoglobin Concent 34.7, Mean Platelet Volume 9.1, Neutrophils (%) (Auto) 55.6, Lymphocytes (%) (Auto) 31.7, Monocytes (%) (Auto) 10.6, Eosinophils (%) (Auto) 1.5, Basophils (%) (Auto) 0.4, Neutrophils # (Auto ) 3.04, Lymphocytes # (Auto) 1.73, Monocytes # (Auto) 0.58, Eosinophils # (Auto ) 0.08, Basophils # (Auto) 0.02 01/05/18 11:32 Test 01/05/18 11:32 White Blood Count 5.46 K/uL (4.8-10.8) Red Blood Count 4.78 M/uL (4.7-6.1) Hemoglobin 14.8 g/dL (14.0-18.0) Hematocrit 42.7 % (42-52) Mean Corpuscular Volume 89.3 fL (80-100) Mean Corpuscular Hemoglobin 31.0 pg (25-34) Mean Corpuscular Hemoglobin Concent 34.7 g/dl (32-36) Platelet Count 169 K/uL (130-400) Mean Platelet Volume 9.1 fL (7.4-10.4) Neutrophils (%) (Auto) 55.6 % Lymphocytes (%) (Auto) 31.7 % Monocytes (%) (Auto) 10.6 % Eosinophils (%) (Auto) 1.5 % Basophils (%) (Auto) 0.4 % Neutrophils # (Auto) 3.04 K/uL (1.4-6.5) Lymphocytes # (Auto) 1.73 K/uL (1.2-3.4) Monocytes # (Auto) 0.58 K/uL (0.11-0.59) Eosinophils # (Auto) 0.08 K/uL (0-0.5) Basophils # (Auto) 0.02 K/uL (0-0.2) RDW Standard Deviation 40.6 fL (36.4-46.3) RDW Coefficient of Variation 12.5 % (11.5-14.5) Immature Granulocyte % (Auto) 0.2 % Immature Granulocyte # (Auto) 0.01 K/uL (0.00-0.02) Urine Color YELLOW Urine Appearance CLEAR (CLEAR) Urine pH 5.0 (4.5-7.5) Urine Specific Alva 1.024 (1.000-1.030) Urine Protein NEG (NEG) Urine Glucose (UA) NEG (NEG) Urine Ketones NEG (NEG) Urine Occult Blood NEG (NEG) Urine Nitrite NEG (NEG) Urine Bilirubin NEG (NEG) Urine Urobilinogen NEG (NEG) Urine Leukocyte Esterase NEG (NEG) Anion Gap 6.0 mmol/L (3-11) Est Creatinine Clear Calc Drug Dose 109.3 ml/min Estimated GFR () 120.8 Estimated GFR (Non- 104.2 BUN/Creatinine Ratio 14.7 (10-20) Calcium Level 9.1 mg/dl (8.5-10.1) Total Bilirubin 0.3 mg/dl (0.2-1) Aspartate Amino Transf (AST/SGOT) 17 U/L (15-37) Alanine Aminotransferase (ALT/SGPT) 20 U/L (12-78) Alkaline Phosphatase 77 U/L (45-117) Total Protein 7.1 gm/dl (6.4-8.2) Albumin 3.9 gm/dl (3.4-5.0) Globulin 3.2 gm/dl (2.5-4.0) Albumin/Globulin Ratio 1.2 (0.9-2) Amylase Level 59 U/L (25-115) Lipase 134 U/L (73-393) Medications Administered Medications (Trade) Dose Ordered Sig/Murali Route Start Time Stop Time Status Last Admin Dose Admin Sodium Chloride 1,000 ml @ 999 mls/hr Q1H1M STAT IV 01/05/18 11:27 01/05/18 12:27 DC 01/05/18 11:27 999 MLS/HR Ondansetron HCl (Zofran Inj) 4 mg NOW STAT IV 01/05/18 11:27 01/05/18 11:28 DC 01/05/18 11:46 4 MG Ketorolac Tromethamine (Toradol Inj) 30 mg NOW STAT IV 01/05/18 11:27 01/05/18 11:28 DC 01/05/18 11:46 30 MG ED Course The patient was seen and evaluated as above. Previous medical records reviewed. IV access obtained, labs drawn. The patient was given 1 L normal saline solution, 4 mg Zofran, and 30 mg Toradol IV for his symptoms. KUB and ultrasound performed. These were reviewed by myself and radiologist as above. Labs reviewed. I discussed the findings with the patient at bedside. He was reassessed and is feeling better. The patient did question whether we should be concerned for possible GI etiology, as his is a [employer] and there has been an outbreak of C. difficile. The patient has not experienced any further bowel movements. He did offer to perform a stool culture and testing, however he was unable to provide a stool sample. I discussed the case with Dr. Magallon. Based on the patient's hypotension, Dr. Magallon did recommend repeat CT scan. I discussed this with the patient, and he declines. He states he feels well enough to go home and would like to just go to bed. I did discuss the risks associated with avoiding this imaging and the possibility that we could be missing a diagnosis. The patient verbalizes understanding. Discharge instructions reviewed, patient was discharged home in good condition. Medical Decision This is a 42-year-old male patient presents emergency department today complaining of left flank pain in the area of his kidney. He had a CT scan performed less than 1 month ago which did show a 5 mm stone in the left kidney. The patient is concerned that the stone could be passing through the ureter. His CBC was without leukocytosis, anemia, thrombocytopenia. Urinalysis did not show any blood or signs of infection. CMP and lipase were without abnormalities. The patient's renal function is normal. His KUB film and ultrasound showed stable left-sided nephrolithiasis with no ureteral stone. No evidence for hydronephrosis. I suspect possibly renal colic versus gastroenteritis versus foodborne illness as the cause of patient's symptoms. He was unable to provide a stool sample while here in the emergency department, and has only had one episode of diarrhea, so I do not feel that outpatient testing is necessary. He has been afebrile and his pain was well-controlled with Toradol and nausea was controlled with Zofran. He will be discharged home with Zofran and advised to follow-up closely with his PCP. We did discuss the possibility that based on his ongoing symptoms which are similar in nature to what he is experiencing today that he could need to follow-up with a precision lens grinder apprentice. The patient was encouraged to return immediately to the emergency department for any significantly worsening symptoms. He verbalized understanding. All questions answered to the patient and his girlfriend satisfaction. While his blood pressure remains slightly hypotensive, he states normally at home and at rest his blood pressure is within the 120s over 70s. I did personally palpate his heart rate and noted to be 64. I suspect the pulse oximeter is abnormally recording the heart rate. Etiologies such as renal colic, appendicitis, diverticulitis, mesenteric ischemia, aortic pathology, infections, inflammatory bowel disease, PUD, biliary pathology, UTI, as well as others were entertained. The chart was completed utilizing [employer] voice recognition software. Grammatical errors, random word insertions, pronoun errors, and incomplete sentences are an occasional consequence of this system due to software limitations, ambient noise, and hardware issues. Any formal questions or concerns about the content, text, or information contained within the body of this dictation should be directly addressed to the provider for clarification. Medication Reconcilliation Current Medication List: was personally reviewed by me Blood Pressure Screening Patient's blood pressure: Low blood pressure Blood pressure disposition: Did not require urgent referral Impression Primary Impression: Renal lithiasis Additional Impression: Left flank pain Departure Information Dispostion Home / Self-Care Condition GOOD Prescriptions Ondasetron Odt (ZOFRAN ODT) 4 Mg Tab 4 MG SL Q6H for Nausea, #6 TAB Prov: Nancy Cisse PA-C 01/05/18 Referrals Yossi Jo M.D. (PCP) Patient Instructions ED Abdominal Pain Unkn Cause Male, ED Flank Pain Uncertain Cause, My [facility] Additional Instructions You have been treated in the Emergency Department your Abdominal Pain. Laboratory results and imaging studies have ruled out any emergent causes for your abdominal pain which would warrant admission or surgery. Note there is a 5 -7 mm stone within the left kidney, however this has not moved into the ureter. You have been prescribed Zofran to be used for any nausea or vomiting. Take as prescribed. For pain control, you can use the following [id number] medicines (if >12 yo): Ibuprofen(Motrin, Advil) may be used for fever or pain. Use 600mg every six hours as needed. Take with food. Avoid using more than 2400mg in a 24 hour period. Do not use 2400mg per day for more than three consecutive days without physician direction. Prolonged inappropriate use can lead to stomach upset or ulcers. (AND/OR) Acetaminophen(Tylenol) may be used for fever or pain. Use 1000mg every six hours as needed. Avoid using more than 3000mg in a 24 hour period. Drink plenty of water and stay well hydrated. As with any trip to the Emergency Department, you should follow-up with your Primary Care Provider from today's visit. Return to the emergency department if your symptoms persist despite treatment plan outlined above or if the following symptoms occur: increased fevers, chills , worsening nausea/vomiting, blood in your stool or urine. Problem Qualifiers
[2018-01-05 12:00] LABS: ALBUMIN 3.9 gm/dl (3.4-5.0); CALCIUM 9.1 mg/dl (8.5-10.1); CREATININE 0.9 mg/dl (0.60-1.40); POTASSIUM 3.9 mmol/L (3.5-5.1)
[2018-01-05 12:02] LABS: TOTAL PROTEIN 7.1 gm/dl (6.4-8.2)
--- NOTE | 2018-01-05 12:35 | DIAGNOSTIC IMAGING REPORT ---
KUB HISTORY: left flank pain, known left renal calculus COMPARISON: Abdomen and pelvis CT 12/09/2017. FINDINGS: The bowel gas pattern is unremarkable. There are no dilated loops of small bowel to suggest an obstruction. No right renal calculi. Small stones within the lower pole the left kidney with the largest measuring 5 mm. No definite ureteral calculi. Calcifications in the deep pelvis are nonspecific but likely represent phleboliths. No pneumoperitoneum or pneumatosis. Old, healed left L2-L4 transverse process fractures. Old, healed left rib fractures. IMPRESSION: Stable left-sided nephrolithiasis. No ureteral calculi identified. Electronically signed by: Abhijit Cole M.D. 01/05/2018 12:34 PM Dictated Date/Time: 01/05/2018 12:32 PM
--- NOTE | 2018-01-05 13:26 | DIAGNOSTIC IMAGING REPORT ---
(RENAL)RETROPERITON COMP HISTORY: Flank pain left flank pain COMPARISON: 12/02/2007 FINDINGS: Right kidney: Maximum dimension 9.9 cm. No evidence for hydronephrosis. Normal corticomedullary differentiation and cortical thickness. Left kidney: Maximum linear dimension 11.1 cm. No evidence for hydronephrosis. 7 mm lower pole nonobstructing calcification. Normal corticomedullary differentiation and cortical thickness. Bladder: No bladder wall thickening. The bilateral ureteral jets were identified. IMPRESSION: 1. 7 mm lower pole nonobstructing calcification left kidney. 2. Study otherwise is negative with no evidence for hydronephrosis. The above report was generated using voice recognition software. It may contain grammatical, syntax or spelling errors. Electronically signed by: Yossi Hernández M.D. 01/05/2018 1:25 PM Dictated Date/Time: 01/05/2018 1:24 PM
[2018-01-05] MEDS ORDERED: VNTHFA/IN INH (13:49)
[2018-01-05] MEDS ORDERED: NICO21DI35 TD (13:49)
[2018-01-05] MEDS ORDERED: PRLSR20 PO (13:49)
[2018-01-05 14:02] VITALS: BP 110/68; PULSE 57; O2SAT 97
[2018-01-05] MEDS ORDERED: ONDA4TAB10 SL (14:08)
== END 2018-01-05 14:18 | disposition home or self-care (01) ==
LOC: C.EDB 10:51 → C.EDC 14:18
DX: N20.0 Calculus of kidney (principal); R10.9 Unspecified abdominal pain; F32.9 Major depressive disorder, single episode, unspecified; F17.210 Nicotine dependence, cigarettes, uncomplicated; Z79.899 Other long term (current) drug therapy